=== PATIENT | female | born 2000 | race African-American/Black ===

== ENCOUNTER 2023-04-15 12:28 | Emergency (ER) | payer SELFPAY ==
[2023-04-15 12:34] VITALS: BP 104/58; PULSE 83; RESP 18; TEMP 98.4; BMI 19.5
[2023-04-15] MEDS ORDERED: ACETAMINOPHEN 325 MG TABLET (FP) PO ONE (13:51)
[2023-04-15] MEDS ORDERED: ACETAMINOPHEN 325 MG TABLET (FP) ONE (13:51)
== END 2023-04-15 13:50 | disposition home or self-care (01) ==
LOC: JERFT 12:28
PROC: 0HQ0XZZ Repair Scalp Skin, External Approach (ICD-10-PCS; principal; 2023-04-15)
DX: S01.81XA Laceration without foreign body of other part of head, initial encounter (principal); X99.9XXA Assault by unspecified sharp object, initial encounter; Y93.89 Activity, other specified; Y92.009 Unspecified place in unspecified non-institutional (private) residence as the place of occurrence of the external cause
CPT/HCPCS: 99282-25